=== PATIENT | female | born 1990 | race Caucasian/White ===

== ENCOUNTER 2019-11-09 09:03 | Emergency (ER) | payer OTHER ==
[2019-11-09 09:25] VITALS: BMI 28.3
[2019-11-09] MEDS ORDERED: KETOROLAC TROMETHAMINE 30 MG/1 ML VIAL IVPUSH ONE (09:35)
--- NOTE | 2019-11-09 09:35 | PDOC ---
History of Present Illness <Chris Alvarado - Last Filed: 11/09/19 12:00> - General History Source: Patient Exam Limitations: No Limitations - History of Present Illness Initial Comments: 11/09/19 09:35 Tiffanie Moreno is an otherwise healthy 29F with PMH hemorrhoids, 3 days s/p hemorrhoidectomy at [facility] here for intractable pain. Patient has had severe circumferential hemorrhoids since having her son in August 2019, had hemorrhoidectomy 3 days prior. Discharged on oxycodone 5mg and Tylenol 650mg, has been taking without significant relief. Today had BM and had extreme pain, now in ED for further evaluation. Denies any other symptoms other than pain, no rectal bleeding, no urinary sx, no fever/chills/nausea/vomiting. Does not take stool softeners, does not have numbing creams. No other PMH. Denies alcohol/drug/tobacco use. <Kevin Lagunas - Last Filed: 11/09/19 17:33> - General Chief Complaint: Pain Stated Complaint: PAIN Time Seen by Provider: 11/09/19 09:28 Past History <Chris Alvarado - Last Filed: 11/09/19 12:00> - Medical History Asthma: No Cancer: No Cardiac Disorders: No COPD: No Diabetes: No HTN: No Seizures: No Thyroid Disease: No - Psycho-Social/Smoking History Smoking History: Never smoked Have you smoked in the past 12 months: No - Substance Abuse Hx (Audit-C & DAST Scrn) How often the patient has a drink containing alcohol: Never Score: In Men: 4 or > Positive; In Women: 3 or > Positive: 0 Screen Result (Pos requires Nsg. Audit-10AR): Negative <Kevin Lagnuas - Last Filed: 11/09/19 17:33> - Medical History Allergies/Adverse Reactions: Allergies Allergy/AdvReac Type Severity Reaction Status Date / Time morphine Allergy Verified 11/09/19 09:23 Home Medications: Ambulatory Orders Acetaminophen [Tylenol] 650 mg PO PRN 11/09/19 Lidocaine 2% Jelly [Xylocaine 2% Jelly -] 1 applic TP DAILY #1 tube 11/09/19 Polyethylene Glycol 3350 [Miralax (For Bowel Prep) -] 255 gm PO BID #1 btl 11/09/19 oxyCODONE HCL [Roxicodone -] 5 mg PO PRN 11/09/19 Review of Systems - Review of Systems Able to Perform ROS?: Yes Constitutional: No: Symptoms Reported HEENTM: No: Symptoms Reported Respiratory: No: Symptoms reported Cardiac (ROS): No: Symptoms Reported ABD/GI: Yes: Other (rectal pain) : No: Symptoms Reported Integumentary: No: Symptoms Reported Neurological: No: Symptoms reported Hematologic/Lymphatic: No: Symptoms Reported All Other Systems: Reviewed and Negative <Kevin Lagunas - Last Filed: 11/09/19 17:33> *Physical Exam - Vital Signs Last Vital Signs Temp Pulse Resp BP Pulse Ox 98.5 F 77 17 107/68 98 11/09/19 11:59 11/09/19 11:59 11/09/19 11:59 11/09/19 11:59 11/09/19 11:59 <Chris Alvarado - Last Filed: 11/09/19 12:00> - Vital Signs Last Vital Signs Temp Pulse Resp BP Pulse Ox 98 F 101 H 18 120/88 97 11/09/19 09:21 11/09/19 09:21 11/09/19 09:21 11/09/19 09:21 11/09/19 09:21 - Physical Exam General Appearance: Yes: Nourished, Apparent Distress, Moderate Distress, Obese, Other (sitting in bed, appears uncomfortable). No: Appropriately Dressed HEENT: positive: EOMI, ARCELIA, Normal Voice, Symmetrical, Pharynx Normal, Hearing Grossly Normal. negative: Scleral Icterus (R), Scleral Icterus (L), Pharyngeal Erythema, Tonsillar Exudate Neck: positive: Trachea midline, Normal Thyroid, Supple. negative: Tender, Rigid, Lymphadenopathy (R), Lymphadenopathy (L), Tender lateral, Tender midline Respiratory/Chest: positive: Lungs Clear, Normal Breath Sounds. negative: Chest Tender, Respiratory Distress, Accessory Muscle Use, Crackles, Rales, Rhonchi, Stridor, Wheezing Cardiovascular: positive: Regular Rhythm, Regular Rate Gastrointestinal/Abdominal: positive: Normal Bowel Sounds, Flat, Soft. negative: Tender, Organomegaly, Pulsatile Mass Rectal Exam: positive: normal rectal tone, hemorrhoids, other (inflamed, post- surgical changes, 2 anterior hemorrhoids remaining, no pus or bleeding). negative: decreased tone Musculoskeletal: positive: Normal Inspection. negative: CVA Tenderness, CVA Tenderness (R), CVA Tenderness (L), Decreased Range of Motion, Vertebral Tenderness Extremity: positive: Normal Capillary Refill, Normal Inspection, Normal Range of Motion. negative: Tender, Swelling, Calf Tenderness, Erythema Integumentary: positive: Normal Color, Dry, Warm Neurologic: positive: Fully Oriented, Alert, Normal Mood/Affect, Normal Response <Kevin Lagunas - Last Filed: 11/09/19 17:33> ED Treatment Course - Medications Given in the ED: ED Medications Discontinued Medications Generic Name Dose Route Start Last Admin Trade Name Freq PRN Reason Stop Dose Admin Ketorolac Tromethamine 60 mg 11/09/19 09:39 11/09/19 09:43 Toradol Injection - IM 11/09/19 09:40 60 mg ONCE ONE Administration Lidocaine/Prilocaine 1 applic 11/09/19 09:47 11/09/19 09:49 Lidocaine-Prilocaine Cream TP 11/09/19 09:48 1 applic ONCE ONE Administration <Chris Alvarado - Last Filed: 11/09/19 12:00> Medical Decision Making - Medical Decision Making 11/09/19 09:56 Patient is 3 days s/p hemorrhoidectomy after a in August 2019, sent home with oxycodone and Tylenol, now here for intractable pain after BM. Patient has been using sitz baths and medications today, but not on numbing creams or stool softeners. Patient denies , giving 60mg Toradol and applying EMLA cream for numbing. Will discharge home with stool softeners with lidocaine cream. 11/09/19 11:15 Patient feeling slightly better. Discussed wound care, sitz bath, lido jelly/ EMLA, stool softeners. Patient understands, will f/u with surgeon as scheduled. <Kevin Lagunas - Last Filed: 11/09/19 17:33> Discharge <Chris Alvarado - Last Filed: 11/09/19 12:00> - Discharge Information Problems reviewed: Yes - Admission No <Kevin Lagunas - Last Filed: 11/09/19 17:33> - Discharge Information Clinical Impression/Diagnosis: Rectal pain Hemorrhoids Qualifiers: Hemorrhoid type: unspecified Qualified Code(s): K64.9 - Unspecified hemorrhoids Condition: Stable Disposition: HOME - Additional Discharge Information Prescriptions: Polyethylene Glycol 3350 [Miralax (For Bowel Prep) -] 255 gm PO BID #1 btl Lidocaine 2% Jelly [Xylocaine 2% Jelly -] 1 applic TP DAILY #1 tube - Patient Discharge Instructions Patient Printed Discharge Instructions: DI for Hemorrhoidectomy Additional Instructions: Perform sitz bath's 3-4 times a day. After air drying apply lidocaine cream as instructed on package 3 times a day. Take [id number] Motrin or Aleve as directed on package. Okay to take oxycodone as prescribed but take with an soen-gnh-lvvssda stool softener such as Colace or MiraLAX as directed on package. Call your colorectal surgeon tomorrow for follow-up. Return to the ED for any fever severe symptoms or for any concerns.
[2019-11-09] MEDS ORDERED: KETOROLAC TROMETHAMINE 60 MG/2 ML VIAL ONE (09:37)
[2019-11-09] MEDS ORDERED: KETOROLAC TROMETHAMINE 60 MG/2 ML VIAL IM ONE (09:39)
[2019-11-09] MEDS ORDERED: LIDOCAINE HCL 4% TOPICAL SOLN (50 ML/BOTTLE) TP ONE (09:45)
[2019-11-09] MEDS ORDERED: LIDOCAINE 2.5%/PRILOCAINE 2.5% (5 Gram/TUBE) TP ONE (09:47)
[2019-11-09] MEDS ORDERED: LIDOCAINE 2.5%/PRILOCAINE 2.5% 30 GRAM TUBE TP ONE (09:47)
--- NOTE | 2019-11-09 11:17 | PDOC ---
Documentation entered by Estevan Saldana SCRIBE, acting as scribe for Chris Alvarado MD. Chris Alvarado MD: This documentation has been prepared by the Shana zhu Xhesika, SCRIBE, under my direction and personally reviewed by me in its entirety. I confirm that the documentation accurately reflects all work, treatment, procedures, and medical decision making performed by me. Attending Attestation - Resident Resident Name: JoannnehaKevin - ED Attending Attestation I have performed the following: I have examined & evaluated the patient, The case was reviewed & discussed with the resident, I agree w/resident's findings & plan, Exceptions are as noted - HPI HPI: 11/09/19 09:34 Patient is a 29 year old female with history of saline breast augmentation who presents to the ED with hemorrhoid pain. Pt states she had a hemorrhoidectomy on Sunday11/07/19. Allergies: Morphine - Physicial Exam PE: 11/09/19 10:32 Vitals: Triage Vital signs reviewed General Appearance: no acute distress, well nourished well developed, Neck: Supple;No Nuchal rigidity Chest Wall: Nontender Cardiac: Regular rate and rhythm, no murmurs, no rubs, no gallops, Lungs: Clear to auscultation bilateral, good air movement bilaterally, Abdomen: Soft, nondistended, normal bowel sounds, nontender to palpation Rectal: +enlarged swollen hemorrhoid with inflammation s/p hemorrhoidectomy Extremities: Full range of motion to all extremities, no cyanosis, clubbing, or edema Skin: Warm and dry, no rashes or lesions, no petechiae Psych: normal mood, normal affect - Medical Decision Making 11/11/19 10:25 29 years old status post hemorrhoidectomy presents with severe rectal pain status post hard bowel movement. Patient had been placed on an opiate but had not been taking stool softeners. Pain is persistent constant moderate to severe no exacerbating or alleviating factors. In the emergency department patient received IM Toradol as well as lidocaine cream. Reevaluation feeling much better will discharge home with prescription for lidocaine cream stool softener she will follow-up with her colorectal surgeon on Sunday Findings, need for follow-up and strict return instructions discussed with patient. Discharge - Discharge Information Problems reviewed: Yes Clinical Impression/Diagnosis: Rectal pain Hemorrhoids Qualifiers: Hemorrhoid type: unspecified Qualified Code(s): K64.9 - Unspecified hemorrhoids Condition: Stable Disposition: HOME - Additional Discharge Information Prescriptions: Polyethylene Glycol 3350 [Miralax (For Bowel Prep) -] 255 gm PO BID #1 btl Lidocaine 2% Jelly [Xylocaine 2% Jelly -] 1 applic TP DAILY #1 tube - Follow up/Referral - Patient Discharge Instructions Patient Printed Discharge Instructions: DI for Hemorrhoidectomy Additional Instructions: Perform sitz bath's 3-4 times a day. After air drying apply lidocaine cream as instructed on package 3 times a day. Take [id number] Motrin or Aleve as directed on package. Okay to take oxycodone as prescribed but take with an iiap-xez-gdmolkn stool softener such as Colace or MiraLAX as directed on package. Call your colorectal surgeon tomorrow for follow-up. Return to the ED for any fever severe symptoms or for any concerns. - Post Discharge Activity
[2019-11-09 12:00] VITALS: BP 107/68; PULSE 77; TEMP 98.5
== END 2019-11-09 12:09 | disposition home or self-care (01) ==
LOC: JER 09:03
PROC: 3E0333Z Introduction of Anti-inflammatory into Peripheral Vein, Percutaneous Approach (ICD-10-PCS; principal; 2019-11-09)
PROC: 3E0233Z Introduction of Anti-inflammatory into Muscle, Percutaneous Approach (ICD-10-PCS; 2019-11-09)
DX: K62.89 Other specified diseases of anus and rectum (principal); K64.9 Unspecified hemorrhoids
CPT/HCPCS: 99284-25

== ENCOUNTER 2023-07-18 08:00 | Inpatient (IN) | payer OTHER ==
[2023-07-18] MEDS: ELECTROLYTE-148 SOLN 500 ML IV SCH (10:00)
[2023-07-18] MEDS: CITRIC ACID/SODIUM CITRATE 30 ML UNIT-DOSE CUP PO ONE (10:25)
[2023-07-18 10:42] VITALS: BMI 34.0
[2023-07-18] MEDS: ELECTROLYTE-148 SOLN 1,000 ML IV SCH (11:00)
[2023-07-18] MEDS ORDERED: FENTANYL CITRATE/PF 50 MCG/ML VIAL ONE (14:21)
[2023-07-18] MEDS ORDERED: morphine SULFATE/PF 1 MG/2 ML (2cc Syringe - QUVA) ONE (14:21)
[2023-07-18] MEDS ORDERED: ceFAZolin SODIUM 1 GM VIAL ONE (15:04)
[2023-07-18] MEDS ORDERED: ONDANSETRON 4 MG/2 ML VIAL ONE (15:04)
[2023-07-18] MEDS ORDERED: KETOROLAC TROMETHAMINE 30 MG/1 ML VIAL ONE (15:04)
[2023-07-18] MEDS ORDERED: PHENYLEPHRINE HCL 10 MG/1 ML SINGLE DOSE VIAL ONE (15:04)
[2023-07-18] MEDS ORDERED: OXYTOCIN 10 UNITS/ML VIAL ONE (15:04)
[2023-07-18] MEDS ORDERED: ONDANSETRON 4 MG/2 ML VIAL IVPB PRN (15:42)
[2023-07-18] MEDS ORDERED: oxyCODONE HCL 5 MG TABLET PO PRN (15:42)
[2023-07-18 16:10] LABS: CORD HCO3 25.6 mmHg (20-29); CORD PCO2 55.6 mmHg (30-78); CORD pH 7.281 (7.14-7.44)
[2023-07-18 16:41] LABS: CORD HCO3 21.3 mmHg (20-29); CORD PCO2 39.9 mmHg (30-78); CORD pH 7.345 (7.14-7.44)
[2023-07-18] MEDS: morphine SULFATE/PF 1 MG/2 ML (2cc Syringe - QUVA) SPIN ONE (16:50)
[2023-07-18] MEDS ORDERED: OXYTOCIN 20 UNITS in 0.9% NS 20 UNIT/1,000 ML INFUS.BAG IV ONE (17:37)
[2023-07-18] MEDS: OXYTOCIN 20 UNITS in 0.9% NS 20 UNIT/1,000 ML INFUS.BAG IV SCH (17:45)
[2023-07-18] MEDS: ACETAMINOPHEN 1000 MG/100 ML BAG IVPB ONE (20:31)
[2023-07-18] MEDS: ACETAMINOPHEN 1000 MG/100 ML BAG IVPB PRN (21:07)
[2023-07-18] MEDS: SENNOSIDES/DOCUSATE COMBO (SENNA PLUS) TABLET (UD) PO SCH (21:08)
[2023-07-19] MEDS: IBUPROFEN 800 MG/8 ML IJ IVPB PRN (00:31)
[2023-07-19] MEDS: FLUCONAZOLE 150 MG TABLET PO ONE (01:09)
[2023-07-19] MEDS: IBUPROFEN 600 MG TABLET (FP) PO PRN (05:15)
[2023-07-19] MEDS: SIMETHICONE 80 MG TAB.CHEW (FP) PO PRN (05:15)
[2023-07-19 07:57] LABS: BASO % 0.2 % (0-2.0); EOS % 1.4 % (0-4.5); HEMATOCRIT 25.7 % (32.4-45.2); HEMOGLOBIN 8.6 GM/dL (10.7-15.3); LYMPH % 13.8 % (8-40); MCH 23.8 pg (25.7-33.7); MCHC 33.5 g/dl (32.0-36.0); MEAN CELL VOLUME 70.9 fl (80-96); MEAN PLT VOLUME 10.6 fl (7.5-11.1); MONO % 7.5 % (3.8-10.2); NEUT % 77.1 % (42.8-82.8); PLATELET COUNT 116 10^3/uL (134-434); RBC 3.63 M/mm3 (3.60-5.2); WHITE BLOOD COUNT 10.4 K/mm3 (4.0-10.0)
[2023-07-19] MEDS ORDERED: oxyCODONE HCL 5 MG TABLET PO PRN ×2 (10:04)
[2023-07-19] MEDS: ACETAMINOPHEN 500 MG TABLET (FP) PO SCH (11:56)
[2023-07-19] MEDS: IRON SUCROSE INJECTION 200 MG in SODIUM CHLORIDE 100 ML IVPB ONE (12:38)
[2023-07-19] MEDS: IBUPROFEN 600 MG TABLET (FP) PO SCH (14:49)
[2023-07-19] MEDS ORDERED: BISACODYL 10 MG SUPP.RECT RC PRN (15:42)
[2023-07-19] MEDS ORDERED: HYDROCORTISONE ACETATE 25 MG/SUPP.RECT PR SCH (22:00)
[2023-07-19] MEDS: HYDROCORTISONE 2.5% TOPICAL CREAM 30 GM TUBE TP SCH (22:25)
[2023-07-19] MEDS: WITCH HAZEL 50% (TUCKS) 40 PAD/JAR PAD TP PRN (22:25)
[2023-07-20 10:04] VITALS: BP 121/88; TEMP 98.5
[2023-07-20 10:41] VITALS: PULSE 96; RESP 20
== END 2023-07-20 13:40 | disposition home or self-care (01) | DRG 788 ==
LOC: JLDR 08:35 → J3W 18:00
PROVIDERS: ADMIT Obstetrics & Gynecology; ATTEND Obstetrics & Gynecology
PROC: 10D00Z1 Extraction of Products of Conception, Low, Open Approach (ICD-10-PCS; principal; 2023-07-18)
DX: O34.211 Maternal care for low transverse scar from previous cesarean delivery (principal); Z3A.39 39 weeks gestation of pregnancy; Z37.0 Single live birth
CPT/HCPCS: 36415; 36600; 82803; 85025; 87081; 88307-TC; J0131; J1756